=== PATIENT | female | born 1955 | race Caucasian/White ===

== ENCOUNTER 2019-11-11 07:10 | Day surgery (SDC) | payer MEDICARE, SELFPAY ==
[~2019-11-11] VITALS: Ht 152.4 cm; Wt 87.7 kg
[~2019-11-11 07:10] MED LIST: ALBU90OI61 INH; B-12250 MCG; BUDE.5 NEB; Brovana15 MCG/2 M NEB; CHOL10002; EPIPEN 2-P0.3 MG/0.3 IJ; ERYTGEL TOP; ESOM20 PO; FLUTICASONE P15.8 M1 INH; Flagyl500 MG PO; GLIM2 PO; GLIM4 PO; HYDACE5 PO; KRILL OIL500 MG; LATA.005SO OD; META800 PO; METF500C PO; NAPR500EC PO; NORT25 PO; PROM25 PO; QVAR7.3 G1 INH; ROSI2 PO; SOMA350 MG PO; VICODIN 5-3001 EACH; XOLAIR; Xolair150 MG SC
[2019-11-11] MEDS ORDERED: NORT25 PO (08:08)
[2019-11-11] MEDS ORDERED: OXYB5 PO (08:08)
[2019-11-11] MEDS ORDERED: FAMO20 PO (08:09)
[2019-11-11] MEDS ORDERED: INVOKANA300 MG PO (08:10)
--- NOTE | 2019-11-11 08:55 | NUR ---
11/11/19 0855 Bobbi Cannon PRE INJECTION WITH BUPIVACAINE 1:200,000 & LIDOCAINE 1% 1:1.
== END 2019-11-11 09:40 | disposition home or self-care (01) ==
LOC: ORSCSDS 07:10
PROVIDERS: Orthopaedic Surgery
PROC: 0LN70ZZ Release Right Hand Tendon, Open Approach (ICD-10-PCS; principal; 2019-11-11 08:30)
DX: M65.351 Trigger finger, right little finger (principal); G47.30 Sleep apnea, unspecified; E11.9 Type 2 diabetes mellitus without complications; J44.9 Chronic obstructive pulmonary disease, unspecified; K21.9 Gastro-esophageal reflux disease without esophagitis; E66.01 Morbid (severe) obesity due to excess calories; Z68.37 Body mass index [BMI] 37.0-37.9, adult; Z79.84 Long term (current) use of oral hypoglycemic drugs; Z79.899 Other long term (current) drug therapy
CPT/HCPCS: 82947; J0171; J0690; J2250; J7120

== ENCOUNTER → 2019-12-07 | Outpatient (CLI) | payer MEDICARE, SELFPAY ==
[~2019-12-07] MED LIST changes: +ALBU90OI6 INH; +Amaryl1 MG PO; +DEXL60CA3; +FAMO20 PO; +FLUT.05NI; +INVOKANA300 MG PO; +LATA.005SO BOTHEYES; +METF500 PO; +NAPR500 PO; +OXYB5 PO
[2019-12-09 11:48] LABS: Stool Occult Bld Immuno 1 Negative (NEGATIVE); Stool Occult Bld Immuno 2 Negative (NEGATIVE)
== END | disposition home or self-care (01) ==
LOC: LAB 16:45 → LAB SHORT 16:45 → LAB FUT 11-30 10:15
PROVIDERS: Internal Medicine Gastroenterology
DX: Z12.11 Encounter for screening for malignant neoplasm of colon (principal); Z83.71 Family history of colonic polyps
CPT/HCPCS: G0328

== ENCOUNTER 2023-06-13 15:51 | Emergency (ER) | payer MEDICARE ==
[~2023-06-13] VITALS: Ht 149.9 cm; Wt 85.3 kg
[2023-06-13 16:23] LABS: BASOPHILS ABSOLUTE AUTO 0.04 K/mm3 (0.00-0.23); BASOPHILS PERCENT AUTO 1 % (0-2); EOSINOPHILS ABSOLUTE AUTO 0.07 K/mm3 (0.00-0.68); EOSINOPHILS PERCENT AUTO 1 % (0-6); Hematocrit 39.4 % (33.0-51.0); IMMATURE GRAN ABSOLUTE AUTO 0.04 K/mm3 (0.00-0.10); IMMATURE GRAN PERCENT AUTO 1 % (0-1); LYMPHOCYTES PERCENT AUTO 5 % (21-46); MONOCYTES ABSOLUTE AUTO 0.49 K/mm3 (0.16-1.47); MONOCYTES PERCENT AUTO 7 % (4-13); Mean Corpuscular HGB 31.3 pg (26.0-34.0); Mean Corpuscular Volume 95 fL (80-100); Mean Platelet Volume 10.1 fL (9.1-12.4); NEUTROPHILS ABSOLUTE AUTO 6.32 K/mm3 (1.96-9.15); NEUTROPHILS PERCENT AUTO 86 % (41-73); Platelet Count 188 K/mm3 (150-400); RDW Coefficient Variation 13.9 % (11.7-14.2); RDW Standard Deviation 48.2 fL (35.1-46.3); Red Blood Cell Count 4.16 M/mm3 (3.80-5.20); White Blood Cell Count 7.36 K/mm3 (4.00-11.30)
[2023-06-13 16:24] LABS: Bicarbonate Venous 25.4 mmol/L (24.0-30.0); PCO2 Venous 35.5 mmHg (38-42); pH Blood Venous 7.45 (7.34-7.37)
[2023-06-13 16:25] LABS: Base Excess Venous 0.8 mmol/L
[2023-06-13 16:44] LABS: Albumin, Blood 3.4 g/dL (3.4-5.0); Albumin/Globulin Ratio 0.9 (0.8-1.8); Bilirubin, Total 0.7 mg/dL (0.1-1.0); Bun/Creatinine Ratio 27.1 (12.0-20.0); Calcium, Blood 9.2 mg/dL (8.5-10.1); Creatinine, Blood 0.52 mg/dL (0.40-1.00); Globulin, Blood 3.8 g/dL (2.2-4.0); Total Protein, Blood 7.2 g/dL (6.4-8.2)
[2023-06-13 17:07] LABS: Source, Urine Clean Catch
[2023-06-13 17:15] LABS: Appearance, Urine Hazy (Clear); Bilirubin, Urine Neg (Neg); Blood, Urine 2+ (Neg); Color, Urine Yellow (P-Yellow); Glucose Qualitative, Urine 4+ (Neg); Ketones, Urine 3+ (Neg); Leukocyte Esterase, Urine 2+ (Neg); Nitrite, Urine Pos (Neg); Protein, Urine 2+ (Neg); Urobilinogen, Urine NORM (Normal)
[2023-06-13 17:24] LABS: White Blood Cells, Urine 25-50 /hpf (0-5)
[2023-06-13 17:25] LABS: Bacteria Many /hpf; Squamous Epithelial Cells Rare /hpf (Few)
[2023-06-13] MEDS ORDERED: NS 1,000 ML IV SCH (17:40)
[2023-06-13] MEDS ORDERED: CefTRIAXone Sodium 1,000 MG in NS 50 ML IV ONE (17:40)
[2023-06-13] MEDS ORDERED: CEPH500 PO (17:46)
[2023-06-13] MEDS ORDERED: Diflucan100 MG PO (17:46)
[2023-06-13] MEDS ORDERED: MICO100S VAG (17:46)
[2023-06-13 19:06] VITALS: BP 125/76
== END 2023-06-13 19:22 | disposition home or self-care (01) ==
LOC: ER 15:51
PROVIDERS: Student in an Organized Health Care Education/Training Program
DX: N39.0 Urinary tract infection, site not specified (principal); E11.65 Type 2 diabetes mellitus with hyperglycemia; J45.909 Unspecified asthma, uncomplicated; Z88.8 Allergy status to other drugs, medicaments and biological substances; Z88.2 Allergy status to sulfonamides; Z88.5 Allergy status to narcotic agent; Z91.048 Other nonmedicinal substance allergy status; Z91.040 Latex allergy status; Z79.899 Other long term (current) drug therapy
CPT/HCPCS: 80053; 81001; 82803; 82947; 85025; 87077; 87086; 87186; 93005; 93010; 96365; 99285-25; J0696; J7030

== ENCOUNTER 2024-11-15 13:58 | Emergency (ER) | payer MEDICARE ==
[~2024-11-15] VITALS: Ht 152.4 cm; Wt 82.5 kg
[~2024-11-15 13:58] MED LIST changes: +CEPH500 PO; +Diflucan100 MG PO; +MICO100S VAG
[2024-11-15 14:16] VITALS: BP 160/72
[2024-11-15] MEDS ORDERED: Ketorolac Tromethamine 15mg Vial IM ONE (15:55)
[2024-11-15] MEDS ORDERED: HYDROcodone 5-APAP 325 TAB PO ONE (15:55)
[2024-11-15] MEDS ORDERED: Lidocaine 4% 1 Patch TOP ONE (15:55)
[2024-11-15] MEDS ORDERED: ASPERFLEX1 EACH TOP (16:14)
[2024-11-15] MEDS ORDERED: Robaxin750 MG PO (16:14)
[2024-11-15] MEDS ORDERED: HYDROCODONE-AC1 EA10 PO (16:14)
== END 2024-11-15 16:14 | disposition home or self-care (01) ==
LOC: ER 13:58
DX: M54.42 Lumbago with sciatica, left side (principal); M54.10 Radiculopathy, site unspecified; E11.9 Type 2 diabetes mellitus without complications; J45.909 Unspecified asthma, uncomplicated; Z91.040 Latex allergy status; Z88.2 Allergy status to sulfonamides; Z88.1 Allergy status to other antibiotic agents; Z88.5 Allergy status to narcotic agent; Z91.041 Radiographic dye allergy status; Z91.048 Other nonmedicinal substance allergy status; Z88.8 Allergy status to other drugs, medicaments and biological substances; Z79.84 Long term (current) use of oral hypoglycemic drugs; Z79.899 Other long term (current) drug therapy
CPT/HCPCS: 96372; 99283-25; A9270; J1885